=== PATIENT | male | born 1945 | race Caucasian/White ===

== ENCOUNTER 2024-09-30 09:59 | Day surgery (SDC) | payer MEDICARE, SELFPAY ==
[2024-09-30] VITALS (9 sets, daily range): BP systolic 110–131; BP diastolic 61–76; PULSE 60–64; RESP 16; TEMP 36.2–36.8; O2SAT 94–98; BMI 30.6
--- NOTE | 2024-09-30 09:31 | PRE.ANES_ITS ---
ASA Classification* ASA Classification ASA Classification: 2 Assessment & Plan Anesthesia* Anesthesia Assessment Anesthesia Assessment: Discussed sedation and/or anesthesia options, risks, benefits, and alternatives with patient/parents/legal guardian/POA. Questions invited. The patient/parents/legal guardian/POA seems to understand and agrees to proceed with anesthesia plan. Reviewed the physical assessment, medical history, allergy history and patient home medications list prior to surgery/procedure/anesthetic and documented any changes. Performed airway and anesthesia risk assessments. Anesthesia Type Anesthesia Type: MAC Anesthesia Focused Assessment* Airway Assessment Mouth opens: >3 cm Mallampati Score: II Focused Labs Anesthesia Preop lab: CBC WBC 8.8 k/mm3 (4.4-11.0) 01/30/13 07:30 01/30/13 RBC 3.74 M/mm3 (4.6-6.2) L 01/30/13 07:30 01/30/13 Hgb 10.9 g/dl (13.0-16.5) L 01/30/13 07:30 01/30/13 Hct 32.8 % (40-54) L 01/30/13 07:30 01/30/13 Plt Count 291 K/mm3 (150-450) 01/30/13 07:30 01/30/13 CHEMISTRY Potassium 3.8 mmol/L (3.5-5.1) 01/30/13 07:30 01/30/13 Sodium 138 mmol/L (136-145) 01/30/13 07:30 01/30/13 BUN 13 mg/dL (7-18) 01/30/13 07:30 01/30/13 Creatinine 0.9 mg/dL (0.8-1.3) 01/30/13 07:30 01/30/13 Glucose 104 mg/dL (70-110) 01/30/13 07:30 01/30/13 COAG Pre-Assessment Diagnosis/Proposed Procedure Planned Operative Procedure(s): BIOPSY TEMPORAL ARTERY LEFT Anesthesia History Anesthesia History - licensed social worker: Anesthesia History - licensed social worker Hx Hospitalization No 09/28/24 14:52 Any Problems With Anesthesia No 09/28/24 14:52 Cholinesterase deficiency No 09/28/24 14:52 You/Your Family Experience No 09/28/24 14:52 fever (hyperthermia) with Relationship Recent Exposure to Contagious Disease Does patient have nerve No 09/28/24 14:52 stimulator Patient instructed to have device shut off --Does patient have Pacemaker or ICD? When Was Last Pacemaker Check QUESTION #4 FULL TEXT: You/Your Family Experience fever (hyperthermia) with Anesthesia Last Oral Intake Last Oral intake: Last Oral Intake NPO since Meds taken in AM with sips of water? Meds patient instructed to take am of surgery PONV PONV - licensed social worker: PONV - licensed social worker Female No 09/28/24 14:52 HX of Motion Sickness No 09/28/24 14:52 HX of N/V After Surgery No 09/28/24 14:52 Non-Smoker Yes 09/28/24 14:52 Duration of Surgery greater No 09/28/24 14:52 than 60 minutes Number of Risk Factors 1 09/28/24 14:52 PONV Score Low Risk 09/28/24 14:52 Respiratory Assessment Respiratory Assessment - licensed social worker: Respiratory Tract Infection Hx - licensed social worker Hx Respiratory Tract Infection No 09/28/24 14:52 STOP Sleep Apnea STOP Sleep Apnea - licensed social worker: STOP Sleep Apnea - licensed social worker Hx Hypertension Yes: NO MED FOR 6 MONTHS 09/28/24 14:52 Hx Sleep Apnea No 09/28/24 14:52 CPAP BIPAP Do you snore loudly (louder No 09/28/24 14:52 than talking or can be heard Do you often feel tired/ No 09/28/24 14:52 fatigued/ sleepy during daytime? Has anyone observed you stop No 09/28/24 14:52 breathing during sleep? STOP Results Negative 09/28/24 14:52 QUESTION #5 FULL TEXT : Do you snore loudly (louder than talking or can be heard through closed doors)? Tobacco Use History Tobacco Use History - licensed social worker: Tobacco Use History - licensed social worker Tobacco Use Non-smoker 04/09/22 08:30 Smoking Status Never smoker 09/28/24 14:52 Hx Tobacco Use No 09/28/24 14:52 Years Smoking Packs Smoked per Day Smoking Cessation Date was within the last 15 years Hx Smoking Cessation Date Hx Smoking Cessation Counseling Hematologic Medial History Hematologic Hx - licensed social worker: Hematologic Medical Hx - holistic nutritionist Hx of Blood Transfusion No 09/28/24 14:52 Hx of Transfusion in last 3 No 09/28/24 14:52 Months Date of Last Transfusion (if within last 3 months) Ever experience any problems No 09/28/24 14:52 with transfusion(s)? Specify any problems Hx of Preganancy in last 3 N/A 09/28/24 14:52 Months Nurse Filling Out Transfusion DSCHRIBER 09/28/24 14:52 & Questions: Date: 09/28/24 09/28/24 14:52 Time: 14:54 09/28/24 14:52 Patient unable to answer at this time (ie. confused, unrespo /Reproduction History /Reproductive History - licensed social worker: /Reproductive Hx- licensed social worker Hx Now No 09/28/24 14:52 Gestational Age (in weeks): EDC: Hx Hx Para Hx Section SAB No 09/28/24 14:52 [facility] Medical History Temporal arteritis Double vision Wears glasses Cancer History of steroid therapy Nephritis Back pain History of IBS Asthma PMR (polymyalgia rheumatica) History of edema History of echocardiogram Hypertension Home Medications ?Medication ?Instructions ?Recorded ?Last Taken ?Type albuterol sulfate 90 mcg/actuation 1 inh inhalation Q6 H PRN shortness 09/28/24 Unknown History aerosol inhaler of breath or wheezing alpha lipoic acid 100 mg capsule 100 mg PO DAILY 09/28 Unknown History glucosamine-chondroitin 750 mg-600 1 tab PO DAILY 09/09 07/04 Unknown History mg tablet prednisone 20 mg tablet 20 mg PO DAILY 09/28/24 Unkn own History vit C 50 mg-E 15 unit-zinc cit 4.5 1 tab PO DAILY 09/09 07/04 Unknown History mg-lutein 2.5 mg-zeaxan chew tablet ([employer]) Allergy/AdvReac Type Severity Reaction Status Date / Time No Known Allergies Allergy Verified 09/29/24 08:30 Family History Father Heart disease CHF Brother Heart disease Mother Cancer Ovarian cancer Surgical History Hx of colonoscopy History of carpal tunnel surgery of right wrist History of carpal tunnel surgery of left wrist Hx of total hip arthroplasty Social History Smoking Status: Never smoker alcohol intake: never substance use type: does not use Review of Systems (Anesthesia) ROS Narrative System reviewed and no additional complaints, except as documented.
--- NOTE | 2024-09-30 10:30 | PCM.HP.STD ---
HPI - General General Date of Admission: 09/30/24 Date of Service: 09/30/24 Chief Complaint: Left eye vision changes HPI Narrative MARTA MORILLO, is a 79 M who presents for left sided temporal artery biopsy. Back in June he had some vision changes as well as a drooping eyelid. He brought this to the attention of his eye doctor just recently. There was concern for temporal arteritis as a possible explanation. As a result a temporal artery biopsy was advised. I saw the patient in the office yesterday to schedule left-sided temporal artery biopsy. Patient presents today for that biopsy [facility] Medical History Temporal arteritis Double vision Wears glasses Cancer History of steroid therapy Nephritis Back pain History of IBS Asthma PMR (polymyalgia rheumatica) History of edema History of echocardiogram Hypertension Home Medications ?Medication ?Instructions ?Recorded ?Last Taken ?Type albuterol sulfate 90 mcg/actuation 1 inh inhalation Q6H PRN shortness 09/28/24 Unknown History aerosol inhaler of breath or wheezing alpha lipoic acid 100 mg capsule 100 mg PO DAILY 09/28/24 09/29/24 History glucosamine-chondroitin 750 mg-600 1 tab PO DAILY 09/28/24 09/29/24 History mg tablet prednisone 20 mg tablet 20 mg PO DAILY 09/28/24 Unknown History vit C 50 mg-E 15 unit-zinc cit 4.5 1 tab PO DAILY 09/28/24 09/29/24 History mg-lutein 2.5 mg-zeaxan chew tablet ([employer]) Allergy/AdvReac Type Severity Reaction Status Date / Time No Known Allergies Allergy Verified 09/30/24 10:20 Family History Father Heart disease CHF Brother Heart disease Mother Cancer Ovarian cancer Surgical History Hx of colonoscopy History of carpal tunnel surgery of right wrist History of carpal tunnel surgery of left wrist Hx of total hip arthroplasty Social History Smoking Status: Never smoker alcohol intake: never substance use type: does not use Vital Signs Vital Signs Vital Signs: 09/30/24 10:21 09/30/24 10:21 Temperature 98.2 F Temperature Source Temporal Pulse Rate 60 Respiratory Rate 16 Respiratory Pattern Normal Blood Pressure 127/76 H Blood Pressure Mean 93 Blood Pressure Source Monitor Blood Pressure Position Semi-Fowlers Blood Pressure Location Left Arm Pulse Ox 98 Oxygen Delivery Method Room Air Weight Weight: 231 lb 14.821 oz Body Mass Index (BMI) 30.6 Physical Exam Narrative Alert and oriented x 3. He is in no acute distress. Assessment & Plan Assessment/Plan (1) Temporal arteritis: PLAN: Plan Left temporal artery biopsy to be performed today. We reviewed the details of the planned procedure including risk benefits and alternatives. He wishes to proceed.
[2024-09-30] MEDS: Lactated Ringers 1,000 ML 15 ML IV (10:35)
--- NOTE | 2024-09-30 11:30 | TEM_PTH ---
PATIENT: MARTA MORILLO LOC: [facility] [place] U#:[id number] AGE/SX: 79/M ROOM: RE09/30/[address]: Dr. Link Regan MD : 1945 BED: DIS: 09/30/2024 SPEC #: [id number] RECD: 10/01/24 08:57 STATUS: MISHA REAnastasia #: [id number] EFREN: 09/30/24 11:[address]: Link Regan DEPT: SURGICAL PATHOLOGY RECD BY: Jim Reese ENTERED: 10/01/24 08:57 SP TYPE: TEMPORAL OTHR DR: Dr. Marquis Ford MD Tissues: A - Temporal region Procedures: Immunohistochemical Stains Surgery Specimen Level IV HEADER OPERATION: Left temporal artery biopsy PRE-OP DIAGNOSIS: Temporal arteritis TISSUE SUBMITTED: A- Left temporal artery segment biopsy MICROSCOPIC DIAGNOSIS A. Left temporal artery, segment, biopsy: * Intimal hyperplasia with focal disruption of the internal elastic lamina without associated lymphocytes. macrophages, giant cells, necrosis or vascular occlusion - see note. Note: An elastin special stain was utilized in the assessment. The findings are not diagnostic of temporal (giant cell) arteritis but could be seen in healed arteritis. MICROSCOPIC DESCRIPTION Slides are reviewed. All matched controls reacted appropriately. These tests were developed and their performance characteristics determined by [facility]. They may not have been cleared or approved by the U.S. Food and Drug Administration. The FDA has determined that such clearance or approval is not necessary.? The above immunohistochemical/dualISH?markers are ordered and reviewed by the Pathologist. GROSS DESCRIPTION A. Received in formalin in a container labeled with the patient's name, date of , and left temporal artery segment for biopsy is a U-shaped portion of brown-ruff tubular soft tissue measuring 1.2 x 0.4 x 0.3 cm. A single undesignated staple is identified on the outer surface. The specimen is submitted entirely (to be sectioned by histology) in A1. [facility] 10-01-2024 CPT:74900,92208
[2024-09-30] MEDS: Lidocaine 1% /Epi 1:100 (20ml) 20 ML Vial (12:17)
--- NOTE | 2024-09-30 12:22 | EX.PCM.DISCH ---
Discharge Instructions Diet Discharge Diet: Light diet - advance as tolerated Activity Discharge Activity: Return to Normal Activity May shower in (days): 1 Ice area for (Minutes): 30 Lifting Restrictions: keep lifting under 50 pounds for 2 weeks Dressing / Incision Call your doctor if your incision/area has: Continuous Slow Oozing, Sudden Increased Bleeding, Increased Pain/ Swelling, Increased Redness, Foul Smelling Discharge and Swelling at the incision site Call your doctor if you observe: Fever of 101 or Higher Cleanse incision/area with: Soap & Water Follow Up Care Please Follow Up With: Link Regan MD When: 2 weeks Test Results: Test results from this visit will be discussed in further detail at your follow-up appointment, if applicable. Discharge Plan Admission Primary Reason for Your Visit: temporal artery biopsy Attending Provider: Link Regan Primary Care Provider: Marquis Ford Instructions Print Language: Senegalese Discharge Orders/Prescriptions Prescriptions: New oxycodone-acetaminophen [Percocet] 5-325 mg tablet 1 tab PO Q8H PRN (Reason: pain) 3 Days Qty: 5 0RF Continued prednisone 20 mg tablet 20 mg PO DAILY glucosamine-chondroitin 750-600 mg tablet 1 tab PO DAILY [facility] 50 mg-15 unit- 4.5 mg-2.5 mg tablet,chewable 1 tab PO DAILY alpha lipoic acid 100 mg capsule 100 mg PO DAILY albuterol sulfate 90 mcg/actuation HFA aerosol inhaler 1 inh inhalation Q6H PRN (Reason: shortness of breath or wheezing) Referrals / Follow Up: Marquis Ford MD [Primary Care Provider] - Disposition Disposition (needs filled in before D/C Order can be placed): Home, Self Care
--- NOTE | 2024-09-30 12:26 | OP.PCM_ITS ---
Problems Associated Problem List Diagnoses (1) Temporal arteritis: Procedures Cardiovascular CF Procedures [id number]: [id number] Temporal artery procedure Operative Report (Standard) Operative Information Date of Procedure: 09/30/24 Pre-Operative Diagnosis: Possible temporal arteritis Post-Operative Diagnosis: same Surgery/Procedure Performed: Left temporal artery biopsy flatwork catcher: Yes Preparation Supervisor Freezing: Darline Enamorado Tasks completed by heel sprayer first: Closing and Retracting Additional assistant quality manager?: No Type of Anesthesia: Local and MAC RN Documented Start/Stop Times: Operation Date: 09/30/24 11:30 Case Time Into Pre-Op 09/30/24 10:14 Out of Pre-Op 09/30/24 11:18 Anesthesia Start 09/30/24 11:21 Into Room 09/30/24 11:21 Procedure Start 09/30/24 11:42 Procedure Start Time: 11:42 Procedure Stop Time: 12:27 Select all DRAINS/GRAFTS/IMPLANTS that apply: None Special Medications: none Estimated Blood Loss: 2 ML Specimen collected: Yes Description of specimen(s) removed: segment of left temporal artery Description of surgery: The patient is a 79-year-old male with a history of visual Surgical Findings: see op note Complications Complications: No Admit VTE Documentation VTE Present on Admission: No VTE Mechan Device Prophylaxis: SCD's VTE Pharm Prophylaxis ordered?: No Reason prophylaxis not ordered: Treatment Not Indicated
--- NOTE | 2024-09-30 12:26 | PCM.OPRPT ---
Problems Associated Problem List Diagnoses (1) Temporal arteritis: Procedures Cardiovascular CF Procedures [id number]: [id number] Temporal artery procedure Operative Report (Standard) Operative Information Date of Procedure: 09/30/24 Pre-Operative Diagnosis: Possible temporal arteritis Post-Operative Diagnosis: same Surgery/Procedure Performed: Left temporal artery biopsy vending machine operator: Yes Project Design Engineer: Darline Enamorado Tasks completed by accounting assistant: Closing and Retracting Additional hygiene assistant?: No Type of Anesthesia: Local and MAC RN Documented Start/Stop Times: Operation Date: 09/30/24 11:30 Case Time Into Pre-Op 09/30/24 10:14 Out of Pre-Op 09/30/24 11:18 Anesthesia Start 09/30/24 11:21 Into Room 09/30/24 11:21 Procedure Start 09/30/24 11:42 Procedure Start Time: 11:42 Procedure Stop Time: 12:27 Select all DRAINS/GRAFTS/IMPLANTS that apply: None Special Medications: none Estimated Blood Loss: 2 ML Specimen collected: Yes Description of specimen(s) removed: segment of left temporal artery Description of surgery: The patient is a 79-year-old male with a history of visual disturbance which was then also followed with some drooping of the left eyelid. This was back in June 2024. He mentioned this to his eye doctor more recently. This raise concern for possible temporal arteritis and so he was sent to my office to discuss left-sided temporal artery biopsy. We discussed the details of the planned procedure and he wishes to proceed. The patient was brought the op room today following informed consent. He was placed supine on the operative table with arms comfortably at his sides. The left side of the face and neck were prepped and draped in the usual manner. Doppler was used to identify the signal from the temporal artery. This was then marked out using a skin marker. Local anesthetic was then used to anesthetize this area. A #15 blade was then used to make a skin incision. Bovie electrocautery was then used to dissect down through the subcutaneous tissue. Doppler again was used to localize the artery. Careful dissection was performed using a mosquito and then later a fine-tipped right angle dissecting instrument. The segment of artery was dissected along its course for about a length of about 2 cm or slightly greater. Once this was cleared the artery was then clipped and tied on both ends and then the artery was then excised. This was then sent to pathology labeled left temporal artery biopsy. Hemostasis was excellent. The wound was then closed using 3-0 Vicryl and then 5-0 Vicryl. Skin glue was applied as dressing. He was awakened from anesthesia and taken recovery in good condition. Surgical Findings: see op note Complications Complications: No Admit VTE Documentation VTE Present on Admission: No VTE Mechan Device Prophylaxis: SCD's VTE Pharm Prophylaxis ordered?: No Reason prophylaxis not ordered: Treatment Not Indicated
--- NOTE | 2024-09-30 13:40 | PCM.POST.ANE ---
Anesthesia: Postop Eval I Current Vital Signs Temperature: 97.1 F Pulse Rate: 61 Blood Pressure: 131/70 Respiratory Rate: 16 Pulse Ox: 94 Oxygen Delivery Method: Room Air Assessment Airway patent: Yes Spontaneous unlabored respirations: Yes Mental status: Awake nausea: No Vomiting: No Anesthesia Complication: No Fluid Hydration Crystalloid volume administer (ml): 100 Total IV fluid infused: 100 Progress Note Anesthesia document: Postop Eval 1 completed: Yes
--- NOTE | 2024-09-30 13:42 | PCM.POSTANE2 ---
Anesthesia Postop Eval I Sum Postop Eval Completion status Anesthesia document: Postop Eval 1 completed: Yes Anesthesia Postop Eval I Summary Anesthesia Postop Eval I Summary: Anesthesia Postop Eval I: Assessment Summary Airway patent Yes 09/30/24 13:41 Spontaneous unlabored Yes 09/30/24 13:41 respirations Mental status Awake 09/30/24 13:41 nausea No 09/30/24 13:41 Vomiting No 09/30/24 13:41 Anesthesia Postop Eval I: Fluid Summary Crystalloid volume administer 100 09/30/24 13:41 (ml) Colloids volume administered ( ml) Blood Product volume administered (ml) Total IV fluid infused 100 09/30/24 13:41 Anesthesia Postop Eval I: Summary Notes Anesthesia Complication No 09/30/24 13:41 Anesthesia Complication Comment: Post-operative progress note Anesthesia: Postop Eval II Evaluation Mental status: Awake Pain Level: 0 nausea: No Vomiting: No
== END 2024-09-30 13:39 | disposition home or self-care (01) ==
LOC: SDC 09:59 → AC 10:01
PROVIDERS: PCP Family Medicine; Referring Provider Surgery; Visit Provider Surgery
PROC: (CPT 37609; principal; 2024-09-30 11:15)
DX: M31.6 Other giant cell arteritis (principal); J45.909 Unspecified asthma, uncomplicated
CPT/HCPCS: 37609; 00352; 88305; 88342; A4648